=== PATIENT | male | born 1960 | race Hispanic/Latino ===

== ENCOUNTER → 2022-03-05 15:29 | Outpatient (CLI) | payer BC, SELFPAY ==
--- NOTE | ~2022-03-05 | XR_ITS ---
XR pelvis 1-2V DATE: 03/05/2022 16:01 INDICATION: L4-5 radiculopathy TECHNIQUE: AP view COMPARISON: None FINDINGS: The pubic symphysis and sacroiliac joints are intact. No pelvic fracture or bone destructio n. Hip joint spaces are symmetric and well preserved. IMPRESSION: No significant abnormality Reviewed, dictated and finalized at location B. IMPRESSION: No significant abnormality
--- NOTE | ~2022-03-05 | XR_ITS ---
XR lumbar spine 2-3V DATE: 03/05/2022 16:01 INDICATION: Low back pain TECHNIQUE: AP, lateral, coned lateral lumbosacral views COMPARISON: None FINDINGS: Mild thoracolumbar levoscoliosis Normal alignment of the lumbar spine. No fracture or bone destruction or spondylolisthesis. The lumbar pedicles and included lower thoracic pedicles are intact . There is minimal degenerative spurring of the lumbar spine. Lumbar and lumbosacral interspaces are relatively well preserved. The sacroiliac joints are intact. IMPRESSION: Minimal degenerative spurring Mild thoracolumbar levoscoliosis. Reviewed, dictated and finalized at location B.
== END ==
PROVIDERS: Visit Provider Chiropractor
DX: M47.816 Spondylosis without myelopathy or radiculopathy, lumbar region (principal); M41.9 Scoliosis, unspecified; M25.552 Pain in left hip
CPT/HCPCS: 72100; 72170